=== PATIENT | female | born 1990 | race African-American/Black ===

== ENCOUNTER 2022-05-17 12:42 | Emergency (ER) | payer MEDICAID ==
[~2022-05-17] VITALS: Ht 170.2 cm; Wt 95.7 kg
[2022-05-17 12:52] VITALS: BP 111/63
--- NOTE | 2022-05-17 16:15 | NUR ---
31YR OLD FEMALE BIB SELF. PT STATES SHE IS 6MONS PREG AND IS IN A DRUG REHAB PROGRAM. NO CARE, LAST SEEN A DOCTOR LAST MONTH IN LONG TERM . PT NEEDS TO SHOW REHAB EVIDENCE OF PREG. DENIES PAIN OR BLEEDING. NO SWELLING IN ANY EXT. DENIES CP OR SOB. COPD RA
--- NOTE | 2022-05-17 16:20 | NUR ---
31 y/o female, pt states she is 6 mo and is staying in [facility] and states she needs proof of for her facility. denies any fevers, body aches, chills, nausea, vomiting, pelvic pain or vaginal bleeding. states that she needs to establish [employer] services. pmh: rheumatoid arthritis, lupus nka
--- NOTE | 2022-05-17 16:27 | NUR ---
WENDI MORENO AT BEDSIDE WITH ULTRASOUND.
[2022-05-17 16:33] VITALS: BP 110/59
--- NOTE | 2022-05-17 16:33 | NUR ---
Patient discharged with v/s stable. Written and verbal after care instructions given and explained. Patient verbalized understanding. Ambulatory with steady gait. All questions addressed prior to discharge. Advised to follow up with PMD.
--- NOTE | 2022-05-17 17:23 | NUR ---
The patient's care was reviewed and supervised by Tamanna Brizuela, RN, RN.
== END 2022-05-17 16:33 | disposition home or self-care (01) ==
LOC: MED 12:42
DX: O26.892 Other specified pregnancy related conditions, second trimester (principal); Z3A.24 24 weeks gestation of pregnancy
CPT/HCPCS: 81002; 81025; 99284

== ENCOUNTER 2024-02-08 12:03 | Emergency (ER) | payer MEDICAID, OTHER ==
[~2024-02-08] VITALS: Ht 172.7 cm; Wt 86.2 kg
[2024-02-08 12:09] VITALS: BP 174/103; PULSE 108; RESP 20; TEMP 98.3; O2SAT 100
[2024-02-08] MEDS ORDERED: ACET-10509 PO (12:55)
[2024-02-08] MEDS ORDERED: DOXY1TCP PO (12:55)
[2024-02-08 13:03] LABS: APPEARANCE,URINE CLEAR (CLEAR); BILIRUBIN,URINE 1+ (NEGATIVE); BLOOD, URINE NEGATIVE (NEGATIVE); COLOR,URINE YELLOW (YELLOW); LEUKOCYTE ESTERASE ,URINE NEGATIVE (NEGATIVE); NITRITE, URINE NEGATIVE (NEGATIVE); PROTEIN,URINE 1+ (NEGATIVE); UGLUCOSE NEGATIVE (NEGATIVE); UROBILINOGEN,URINE 0.2 EU/dL (0.2 - 1)
[2024-02-08 13:06] LABS: ICTOTEST NEGATIVE (NEGATIVE)
[2024-02-08] MEDS ORDERED: CRUSHER, PILL MC ONE (13:13)
[2024-02-08] MEDS: ONDANSETRON 4 MG TAB PO ONE (13:14)
[2024-02-08] MEDS: ACETAMINOPHEN 325 MG TAB PO ONE (13:14)
[2024-02-08 13:34] VITALS: BP 150/98; PULSE 87; RESP 12; TEMP 98; O2SAT 100
== END 2024-02-08 13:34 | disposition home or self-care (01) ==
LOC: MED 12:03
DX: O21.8 Other vomiting complicating pregnancy (principal); O99.320 Drug use complicating pregnancy, unspecified trimester; F15.90 Other stimulant use, unspecified, uncomplicated; F12.90 Cannabis use, unspecified, uncomplicated; O10.919 Unspecified pre-existing hypertension complicating pregnancy, unspecified trimester; Z3A.00 Weeks of gestation of pregnancy not specified; Z79.899 Other long term (current) drug therapy
CPT/HCPCS: 81003; 81025; 99283; Q0162; 81002